=== PATIENT | male | born 1995 | race Caucasian/White ===

== ENCOUNTER 2021-06-16 21:46 | Emergency (ER) | payer BC, OTHER ==
[~2021-06-16] VITALS: Ht 180.3 cm; Wt 82.6 kg
[2021-06-16 21:46] VITALS: BP_SYST 135
--- NOTE | 2021-06-16 21:46 | NUR ---
Patient triaged and placed in waiting room. VSS and patient appears in no acute distress at this time. Accompanied by FATHER, awaiting available bed, and MD notified of need for MSE.
--- NOTE | 2021-06-16 22:12 | NUR ---
Patient to ER bed 07 to gown for evaluation. Side rails up. Report given to ROBERTO Ann
--- NOTE | 2021-06-16 22:15 | NUR ---
Patient accompanied by father from home complaining of right arm numbness starting today. Patient states that he has bumps in his axilla for 1 1/2 months and feels like something is compressing his nerves. Patient has no deficits. denies any pain.
--- NOTE | 2021-06-16 22:22 | NUR ---
Dr. Melendez bedside for pt eval
--- NOTE | 2021-06-16 23:28 | NUR ---
Dr. Melendez bedside for Ultra Sound procedure , well tolerated
[2021-06-16 23:55] VITALS: BP_SYST 135
--- NOTE | 2021-06-16 23:58 | NUR ---
Patient given written and verbal discharge instructions and verbalizes understanding. ER MD discussed with patient the results and treatment provided. Patient in stable condition. ID arm band removed. No Rx given. Patient educated on pain management and to follow up with PMD. Pain Scale 0/10 Opportunity for questions provided and answered.
== END 2021-06-16 23:58 | disposition home or self-care (01) ==
LOC: SED 21:46
DX: R20.0 Anesthesia of skin (principal); R59.0 Localized enlarged lymph nodes
CPT/HCPCS: 99284